=== PATIENT | female | born 1950 | race Caucasian/White ===

== ENCOUNTER → 2016-07-24 | Outpatient (CLI) | payer OTHER ==
[~2016-07-24] MED LIST: ACETAMINOPHEN325 M1 PO; ADVAIR HFA115 MCG/21 INH; ALBUTEROL2.5 MG/0.1; ALBUTEROL2.5 MG/31 INH; ASPIR 8181 M1 PO; ATIVAN0.5 MG PO; AZITHROMYCIN 2250 MG PO; BONIVA150 MG PO; CARAFATE 1 GM TA1 G1 PO; CIPRO500 MG PO; CLARITIN10 MG PO; CODEINE-GUAIFE120 ML; COLACE100 MG PO; COMBIVENT INH; COUMADIN 5 MG TA5 M1 PO; DUONEB 2.5-0.5 M3 ML INH; ENABLEX15 MG PO; ENOXAPARIN40 MG/0.1 SUBQ; ENOXAPARIN60 MG/0.1 SUBQ; FAMOTIDINE20 MG PO; FLAGYL500 MG PO; HAIR, SKIN & N1 EAC1 PO; HI-CAL500 MG PO; HYDROCODON-ACE1 EAC8 PO; IBUPROFEN 200200 M1 PO; IBUPROFEN 600600 M1 PO; K-DUR 20 MEQ T20 MEQ PO; KEFLEX500 MG PO; LEVAQUIN 500 M500 MG PO; LEXAPRO 10 MG T10 M1 PO; LOPERAMIDE 2 MG2 M1 PO; LORAZEPAM 0.50.5 MG PO; MACROBID 100 M100 M1 PO; MOM PO; NICODERM CQ1 EAC1 TD; NICOTINE TRANSD21 M1; NICOTINE TRANSD21 M1 TRANSDERM; NORCO 5-325 TA1 EACH PO; OMEPRAZOLE20 M2 PO; ONDANSETRON HCL4 M2 PO; OXYBUTYNIN 5 MG5 M1 PO; PENICILLIN V P500 MG PO; PREDNISONE 10 M10 MG PO; PREDNISONE 20 M20 MG PO; PRENATAL ONE T1 EACH PO; PREVALITE PACKE1 PKT PO; PROMETHAZINE-C120 ML PO; PROTONIX40 M1 PO; PROTONIX40 M2 PO; SPIRIVA INH; TESSALON PERLE100 MG PO; THIAMINE PO; TYLENOL325 MG PO; VENTOLIN HFA 1818 GM INH; VITAMIN B-1100 M1 PO; VITAMIN D PO; VITAMIN D-32000 UNIT PO; WELLBUTRIN SR150 MG PO; XENADERM OINTME30 GM; ZPAK PO
== END ==
LOC: CAT 09:59
DX: R91.1 Solitary pulmonary nodule (principal)

== ENCOUNTER 2018-02-24 12:01 | Inpatient (IN) | payer OTHER ==
[~2018-02-24] VITALS: Ht 165.1 cm; Wt 56.7 kg
[2018-02-24 12:01] VITALS: BP 110/66
[2018-02-24 12:30] LABS: HEMATOCRIT 26.8 % (37.0-47.0); HEMOGLOBIN 9.7 gm/dL (12.0-15.0); MCH 35.6 pg (26.0-34.0); MCHC 36.3 g/dL (28.0-37.0); MCV 98.1 fL (80.0-100.0); PLATELET COUNT 359 thou/uL (150-400); RBC 2.73 mil/uL (4.20-5.00); RDW 25.9 % (10.5-14.5); WBC 6.3 thou/uL (4.0-11.0)
[2018-02-24] MEDS ORDERED: FOLIC ACID1 MG PO (12:48)
[2018-02-24] MEDS ORDERED: HYDREA500 MG PO (12:48)
[2018-02-24 12:49] LABS: ALBUMIN 3.4 g/dL (3.4-5.0); CALCIUM 8.9 mg/dL (8.5-10.1); CREATININE 0.7 mg/dL (0.6-1.0); TOTAL BILIRUBIN 0.8 mg/dL (<0.1-1.0); TOTAL PROTEIN 7.5 g/dL (6.4-8.2)
[2018-02-24 12:53] LABS: POTASSIUM 2.8 mmol/L (3.5-5.1)
[2018-02-24 13:02] LABS: ABSOLUTE NEUTROPHILS 3.7 thou/uL (1.4-8.2)
[2018-02-24 15:00] VITALS: BP 132/66
[2018-02-24 16:35] VITALS: BP 120/71
[2018-02-24 16:54] LABS: MAGNESIUM 1.6 mg/dL (1.8-2.4)
[2018-02-24 18:38] VITALS: BP 136/62
[2018-02-24 19:20] VITALS: BP 129/65
[2018-02-24 23:40] VITALS: BP 155/63
[2018-02-25 02:13] LABS: URINE BILIRUBIN NEGATIVE (Negative); URINE BLOOD 2+ (Negative); URINE CLARITY CLEAR; URINE COLOR YELLOW; URINE GLUCOSE-RANDOM* NEGATIVE (Negative); URINE KETONES NEGATIVE (Negative); URINE LEUKOCYTES-REFLEX NEGATIVE (Negative); URINE NITRITE-REFLEX NEGATIVE (Negative); URINE PROTEIN (DIPSTICK) NEGATIVE (Negative); URINE UROBILINOGEN 0.2 E.U./dl (0.2-1.0)
[2018-02-25 02:23] LABS: CASTS None Seen /LPF (None Seen); MUCUS None Seen strn/LPF (None Seen); SQUAMOUS 0-3 Few /LPF (0-3)
[2018-02-25 02:24] LABS: BACTERIA-REFLEX None Seen /HPF (None Seen); CRYSTALS None Seen /LPF (None Seen); URINE RBC None Seen /HPF (0-2); URINE WBC-REFLEX None Seen /HPF (0-5)
[2018-02-25 02:27] LABS: AMP/METHAMP Negative (Negative); BARBITURATES Negative (Negative); BENZODIAZEPINES Negative (Negative); COCAINE Negative (Negative); METHADONE Negative (Negative); OPIATES POSITIVE (Negative); PCP Negative (Negative)
[2018-02-25 02:32] LABS: SSA (PROTEIN CONFIRMATORY) NEGATIVE (Negative)
[2018-02-25 03:20] VITALS: BP 130/70
[2018-02-25 04:50] LABS: BASOPHILS 0.4 % (0.0-2.0); EOSINOPHILS 0.4 % (0.0-3.0); HEMATOCRIT 26.8 % (37.0-47.0); HEMOGLOBIN 9.9 gm/dL (12.0-15.0); LYMPHOCYTES 24.7 % (24.0-44.0); MCH 36.2 pg (26.0-34.0); MCHC 36.8 g/dL (28.0-37.0); MCV 98.2 fL (80.0-100.0); MONOCYTES 5.5 % (1.0-8.0); PLATELET COUNT 332 thou/uL (150-400); RBC 2.73 mil/uL (4.20-5.00); RDW 26.2 % (10.5-14.5); WBC 5.8 thou/uL (4.0-11.0)
[2018-02-25 04:53] LABS: CALCIUM 8.3 mg/dL (8.5-10.1); CREATININE 0.6 mg/dL (0.6-1.0); MAGNESIUM 1.5 mg/dL (1.8-2.4)
[2018-02-25 04:58] LABS: POTASSIUM 3.7 mmol/L (3.5-5.1)
[2018-02-25 06:40] LABS: ANISOCYTOSIS 3+
[2018-02-25 07:30] VITALS: BP 100/65
[2018-02-25 11:07] VITALS: BP 121/77
[2018-02-25 15:42] LABS: CALCIUM 8.5 mg/dL (8.5-10.1); CREATININE 0.8 mg/dL (0.6-1.0); POTASSIUM 4.3 mmol/L (3.5-5.1)
[2018-02-25 16:29] VITALS: BP 109/51
[2018-02-25 19:20] VITALS: BP 119/66
[2018-02-25] MEDS ORDERED: HYDREA500 MG PO (20:37)
[2018-02-25 23:37] LABS: URINE CREATININE-RANDOM* 41.1 mg/dL
[2018-02-26 03:50] VITALS: BP 125/55
[2018-02-26 08:11] VITALS: BP 142/70
[2018-02-26 11:15] VITALS: BP 150/70
[2018-02-26 12:34] LABS: CALCIUM 8.6 mg/dL (8.5-10.1); CREATININE 0.9 mg/dL (0.6-1.0); POTASSIUM 5.1 mmol/L (3.5-5.1)
[2018-02-26 16:12] VITALS: BP 145/75
[2018-02-26 19:57] VITALS: BP 125/56
[2018-02-27 03:40] VITALS: BP 136/58
[2018-02-27 07:28] VITALS: BP 155/76
[2018-02-27 11:26] LABS: CALCIUM 8.4 mg/dL (8.5-10.1); CREATININE 0.8 mg/dL (0.6-1.0); POTASSIUM 5.4 mmol/L (3.5-5.1)
[2018-02-27 11:38] VITALS: BP 127/72
[2018-02-27 11:48] VITALS: BP 155/76
== END 2018-02-27 14:15 | disposition left against medical advice (07) | DRG 392 ==
LOC: ER 12:01 → EROBS 14:39 → 3W 14:39
PROVIDERS: Hospitalist; Internal Medicine; Nurse Practitioner; Physician Assistant
PROC: 0D758ZZ Dilation of Esophagus, Via Natural or Artificial Opening Endoscopic (ICD-10-PCS; principal; 2018-02-26)
DX: K22.2 Esophageal obstruction (principal); J98.11 Atelectasis; E87.1 Hypo-osmolality and hyponatremia; J44.9 Chronic obstructive pulmonary disease, unspecified; F17.210 Nicotine dependence, cigarettes, uncomplicated; D64.9 Anemia, unspecified; D47.3 Essential (hemorrhagic) thrombocythemia; K22.0 Achalasia of cardia; E83.42 Hypomagnesemia; R13.10 Dysphagia, unspecified; K44.9 Diaphragmatic hernia without obstruction or gangrene; E87.6 Hypokalemia; Z53.21 Procedure and treatment not carried out due to patient leaving prior to being seen by health care provider; F32.9 Major depressive disorder, single episode, unspecified; M81.0 Age-related osteoporosis without current pathological fracture; Z86.73 Personal history of transient ischemic attack (TIA), and cerebral infarction without residual deficits; Z91.041 Radiographic dye allergy status; Z83.3 Family history of diabetes mellitus; Z86.711 Personal history of pulmonary embolism; Z71.6 Tobacco abuse counseling; Z79.82 Long term (current) use of aspirin; Z79.899 Other long term (current) drug therapy
CPT/HCPCS: 10879; 62110; 62900; 70005

== ENCOUNTER 2018-03-03 22:52 | Inpatient (IN) | payer OTHER ==
[~2018-03-03] VITALS: Ht 165.1 cm; Wt 58.2 kg
--- NOTE | ~2018-03-03 | HC ---
[facility] [place] [address] CONSULTATION Name: SHERRY PORTILLO Room #: 215-P ADM IN M.R.#: [id number] Admission: 03/04/18 Attend Phys: Jalen Youngblood Discharge: Date of : 52 Report #: [id number] THIS REPORT FOR: //name// CC: Jalen Orellana REASON FOR CONSULTATION: Hyponatremia. REASON FOR PRESENTATION: Nausea and vomiting. 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 The patient was discharged from the hospital recently after a similar presentation. She left [facility] because she was unsatisfied with her care. She reported persistent nausea and vomiting with decreased oral intake and presented back with similar symptoms. On presentation, yet again, she was found to have hyponatremia. We are being asked to evaluate her hyponatremia. The patient had unfortunately lost followup and is extremely noncompliant with her care, hence no definitive diagnosis for her hyponatremia. She was evaluated back in 2011 and 2013. I looked at the details of her medical chart. Her hyponatremia dates back to 2004. Serum sodium had been in the range of 114-135. She had been labeled this as SIADH, but workup has never been completed. I am not really sure about her alcohol history, but apparently she has previous history of alcohol abuse. She denied nonsteroidal anti-inflammatory medications. She denies syncopal or seizure episodes. PAST MEDICAL HISTORY: Extensive and includes the following, 1. Hyponatremia. 2. COPD. 3. CVA. 4. Meniere's disease. 5. Achalasia. 6. Osteoporosis. 7. Right hip open reduction and internal fixations. 8. Cornea replacement. 9. Chronic tobacco abuse. 10. Depression. 11. JAK2 mutation. 12. Peptic ulcer disease. MEDICATIONS: Listed amongst her medications, 1. Hydroxyurea. 2. Aspirin. 3. Folic acid. SOCIAL HISTORY: She lives with her ex-spouse. She continues to smoke. No reported drug abuse. [facility] [address] [place] [address] CONSULTATION Name: PORTILLOSHERRYKEVIN POWER Room #: 215-P [facility] IN M.R.#: [id number] Admission: 03/04/18 Attend Phys: Jalen Youngblood Discharge: Date of : 52 Report #: [id number] REVIEW OF SYSTEMS: GENERAL: No fever or chills. CARDIOVASCULAR: No chest pain. PULMONARY: Chronic cough and shortness of breath. GASTROINTESTINAL: Very low oral intake with persistent nausea and vomiting. GENITOURINARY: No frequency, no urgency. MUSCULOSKELETAL: Occasional back pain and muscle stiffness. ALLERGIES: CONTRAST DYE. FAMILY HISTORY: No known family history of hyponatremia. PHYSICAL EXAMINATION: GENERAL: Alert, oriented. VITAL SIGNS: Blood pressure is actually on the low side 101/59. HEAD AND NECK: Extremely dry mucous membrane. CHEST: No crackles. CARDIOVASCULAR: No rub. ABDOMEN: Soft, nontender. LOWER EXTREMITIES: No edema. LABORATORY DATA: Laboratory values reviewed, sodium 122, potassium 3.3. Hemoglobin 8.5, platelet 277. ASSESSMENT, IMPRESSION AND PLAN: 1. Chronic hyponatremia. 2. Noncompliance with medical care. 3. Achalasia. 4. Meniere's disease. 5. Tobacco abuse. 6. Chronic obstructive pulmonary disease. 7. She does have chronic hyponatremia; however, unfortunately because of her noncompliance, this has never been very well studied. I will send appropriate workup for her hyponatremia. At this point, she seems to be in hypovolemic hyponatremia with very dry mucous membrane. I agree with the normal saline. 8. Slow correction of sodium. 9. Serial sodium levels. 10. Check endocrinological studies. 11. We will continue to follow along. By: [id number] Lissa Pavon MD /nt
[~2018-03-03 22:52] MED LIST changes: +FOLIC ACID1 MG PO; +HYDREA500 MG PO
[2018-03-03 23:21] VITALS: BP 99/51
[2018-03-03] MEDS ORDERED: VENTOLIN HFA 1818 GM INH (23:28)
[2018-03-04] VITALS (8 sets, daily range): BP systolic 101–119; BP diastolic 48–61
[2018-03-04 00:09] LABS: ABSOLUTE NEUTROPHILS 3.8 thou/uL (1.4-8.2); BASOPHILS 0.8 % (0.0-2.0); EOSINOPHILS 0.4 % (0.0-3.0); HEMATOCRIT 22.9 % (37.0-47.0); HEMOGLOBIN 8.5 gm/dL (12.0-15.0); LYMPHOCYTES 30.1 % (24.0-44.0); MCH 37.8 pg (26.0-34.0); MCHC 37.2 g/dL (28.0-37.0); MCV 101.5 fL (80.0-100.0); MONOCYTES 5.8 % (1.0-8.0); PLATELET COUNT 277 thou/uL (150-400); POLYS 62.9 % (36.0-66.0); RBC 2.25 mil/uL (4.20-5.00); RDW 26.6 % (10.5-14.5); WBC 6.1 thou/uL (4.0-11.0)
[2018-03-04 00:16] LABS: CALCIUM 8.9 mg/dL (8.5-10.1); POTASSIUM 3.3 mmol/L (3.5-5.1)
[2018-03-04 12:57] LABS: CALCIUM 8.6 mg/dL (8.5-10.1); CREATININE 0.9 mg/dL (0.6-1.0); POTASSIUM 3.8 mmol/L (3.5-5.1)
[2018-03-04 13:00] LABS: ALBUMIN 2.7 g/dL (3.4-5.0); PHOSPHORUS 2.9 mg/dL (2.5-4.9)
[2018-03-04 20:23] LABS: URINE BILIRUBIN NEGATIVE (Negative); URINE BLOOD NEGATIVE (Negative); URINE CLARITY CLEAR; URINE COLOR YELLOW; URINE GLUCOSE-RANDOM* NEGATIVE (Negative); URINE KETONES NEGATIVE (Negative); URINE LEUKOCYTES NEGATIVE (Negative); URINE NITRITE NEGATIVE (Negative); URINE PROTEIN (DIPSTICK) NEGATIVE (Negative); URINE UROBILINOGEN 0.2 E.U./dl (0.2-1.0)
[2018-03-04 20:28] LABS: URINE CREATININE-RANDOM* 62.3 mg/dL; URINE PROTEIN-RANDOM* 8.3 mg/dL (<11.9)
[2018-03-05] VITALS (7 sets, daily range): BP systolic 114–144; BP diastolic 50–66
[2018-03-05 04:17] LABS: ALBUMIN 2.8 g/dL (3.4-5.0); CALCIUM 8.5 mg/dL (8.5-10.1); CREATININE 0.9 mg/dL (0.6-1.0); PHOSPHORUS 3.1 mg/dL (2.5-4.9); POTASSIUM 4.3 mmol/L (3.5-5.1)
[2018-03-05 05:08] LABS: HEMOGLOBIN 7.1 gm/dL (12.0-15.0); WBC 4.4 thou/uL (4.0-11.0)
[2018-03-05 05:10] LABS: MCH 37.6 pg (26.0-34.0); MCHC 36.1 g/dL (28.0-37.0); MCV 104.2 fL (80.0-100.0); RBC 1.89 mil/uL (4.20-5.00); RDW 26.7 % (10.5-14.5)
[2018-03-05 05:12] LABS: HEMATOCRIT 19.7 % (37.0-47.0)
[2018-03-06 04:01] VITALS: BP 148/57
[2018-03-06 04:24] LABS: ALBUMIN 2.4 g/dL (3.4-5.0); CALCIUM 8.1 mg/dL (8.5-10.1); CREATININE 0.7 mg/dL (0.6-1.0); MAGNESIUM 1.3 mg/dL (1.8-2.4); PHOSPHORUS 3.2 mg/dL (2.5-4.9); POTASSIUM 4.1 mmol/L (3.5-5.1)
[2018-03-06 04:26] LABS: MCH 37.6 pg (26.0-34.0); MCHC 36.4 g/dL (28.0-37.0); MCV 103.2 fL (80.0-100.0); RBC 1.69 mil/uL (4.20-5.00); RDW 26.1 % (10.5-14.5); WBC 4.4 thou/uL (4.0-11.0)
[2018-03-06 04:31] LABS: HEMOGLOBIN 6.4 gm/dL (12.0-15.0)
[2018-03-06 04:32] LABS: HEMATOCRIT 17.5 % (37.0-47.0)
[2018-03-06 05:30] VITALS: BP 144/73; BP 153/60
[2018-03-06 07:53] VITALS: BP 176/97
[2018-03-06 09:49] LABS: FOLIC ACID 46.1 ng/mL (8.6-58.9)
[2018-03-06 10:03] LABS: HEMATOCRIT 24.9 % (37.0-47.0)
[2018-03-06 10:04] LABS: HEMOGLOBIN 8.9 gm/dL (12.0-15.0)
[2018-03-06 16:31] VITALS: BP 159/77
[2018-03-06 19:16] VITALS: BP 155/76
[2018-03-07 05:07] LABS: HEMOGLOBIN 8.5 gm/dL (12.0-15.0); MCH 32.9 pg (26.0-34.0); MCHC 35.4 g/dL (28.0-37.0); RBC 2.58 mil/uL (4.20-5.00); RDW 30.8 % (10.5-14.5); WBC 4.2 thou/uL (4.0-11.0)
[2018-03-07 05:08] VITALS: BP 150/74
[2018-03-07 05:17] LABS: CALCIUM 8.5 mg/dL (8.5-10.1); CREATININE 0.7 mg/dL (0.6-1.0); MAGNESIUM 1.2 mg/dL (1.8-2.4); POTASSIUM 3.8 mmol/L (3.5-5.1)
[2018-03-07 05:54] LABS: CALCIUM 8.4 mg/dL (8.5-10.1); CREATININE 0.8 mg/dL (0.6-1.0); POTASSIUM 3.7 mmol/L (3.5-5.1)
[2018-03-07 07:15] VITALS: BP 132/84
== END 2018-03-07 14:26 | disposition left against medical advice (07) | DRG 377 ==
LOC: ER 22:52 → 2N 03-04 00:34 → EROBS 03-04 00:34 → 2N 03-04 01:49
PROVIDERS: Hospitalist; Internal Medicine; Internal Medicine Gastroenterology; Internal Medicine Nephrology; Nurse Practitioner Acute Care; Nurse Practitioner Family; Student in an Organized Health Care Education/Training Program; ADMIT Internal Medicine
PROC: 30233N1 Transfusion of Nonautologous Red Blood Cells into Peripheral Vein, Percutaneous Approach (ICD-10-PCS; principal; 2018-03-06)
DX: K92.2 Gastrointestinal hemorrhage, unspecified (principal); E43 Unspecified severe protein-calorie malnutrition; E87.1 Hypo-osmolality and hyponatremia; D47.1 Chronic myeloproliferative disease; J44.9 Chronic obstructive pulmonary disease, unspecified; M81.0 Age-related osteoporosis without current pathological fracture; F32.9 Major depressive disorder, single episode, unspecified; D53.9 Nutritional anemia, unspecified; E87.6 Hypokalemia; H81.09 Meniere's disease, unspecified ear; K22.0 Achalasia of cardia; F17.210 Nicotine dependence, cigarettes, uncomplicated; D47.3 Essential (hemorrhagic) thrombocythemia; D63.8 Anemia in other chronic diseases classified elsewhere; K21.9 Gastro-esophageal reflux disease without esophagitis; Z53.21 Procedure and treatment not carried out due to patient leaving prior to being seen by health care provider; I10 Essential (primary) hypertension; Z86.73 Personal history of transient ischemic attack (TIA), and cerebral infarction without residual deficits; Z91.041 Radiographic dye allergy status; Z87.11 Personal history of peptic ulcer disease; Z91.14 Patient's other noncompliance with medication regimen; Z83.3 Family history of diabetes mellitus; Z71.6 Tobacco abuse counseling; Z79.82 Long term (current) use of aspirin; Z79.899 Other long term (current) drug therapy; Z86.711 Personal history of pulmonary embolism; Z94.7 Corneal transplant status
CPT/HCPCS: 10081

== ENCOUNTER 2018-09-19 14:32 | Emergency (ER) | payer OTHER ==
[~2018-09-19] VITALS: Ht 167.6 cm; Wt 37.2 kg
[2018-09-19 19:42] VITALS: BP 98/56
== END 2018-09-19 20:22 | disposition designated cancer center or children's hospital (05) ==
LOC: ER 14:32
DX: J44.9 Chronic obstructive pulmonary disease, unspecified (principal); R41.82 Altered mental status, unspecified; F17.210 Nicotine dependence, cigarettes, uncomplicated; M81.0 Age-related osteoporosis without current pathological fracture; F32.9 Major depressive disorder, single episode, unspecified; I10 Essential (primary) hypertension; Z91.041 Radiographic dye allergy status; Z86.73 Personal history of transient ischemic attack (TIA), and cerebral infarction without residual deficits